=== PATIENT | female | born 1955 | race Caucasian/White ===

== ENCOUNTER 2018-03-02 17:13 | Inpatient (IN) | payer BC ==
[~2018-03-02] VITALS: Ht 165.1 cm; Wt 77.7 kg
[2018-03-02 17:13] VITALS: BP_SYST 127
--- NOTE | 2018-03-02 17:35 | NUR ---
Pt complains of abdominal pain, shortness or breath with exertion, and non-radiating chest wall pain. Pt states over the past few days it has gotten worse. Pt states she has felt "chills and does not feel good." Pt has been nauseous and vomited. Per pt, diarrhea is her baseline. Pt denies pain/burning upon urination. No other injuries/complaints per patient or noted.
--- NOTE | 2018-03-02 17:35 | NUR ---
Pt placed to ER bed 06, report given to ANITA Gomez.
[2018-03-02] MEDS ORDERED: ASPIRIN 81 MG TAB.CHEW PO ONE (18:00)
--- NOTE | 2018-03-02 18:00 | NUR ---
Medication was given, pt tolerated well. No adverse reaction, will continue to monitor.
[2018-03-02 18:10] LABS: BASOPHILS # (AUTO) 0.1 K/uL (0.0-0.2); BASOPHILS % (AUTO) 0.7 % (0.0-2.0); EOSINOPHILS # (AUTO) 0.2 K/uL (0.0-0.4); EOSINOPHILS % (AUTO) 2.1 % (0.0-4.0); HEMATOCRIT 46.3 % (36-48); HEMOGLOBIN 15.7 g/dL (12.0-16.0); LYMPHOCYTES # (AUTO) 2.8 K/uL (1.0-5.5); LYMPHOCYTES % (AUTO) 27.4 % (20.5-51.5); MEAN CORPUSCULAR HEMOGLOBIN 33 pg (27-31); MEAN CORPUSCULAR HGB CONC 34 % (32-36); MEAN CORPUSCULAR VOLUME 96 fL (79.0-98.0); MONOCYTES # (AUTO) 0.7 K/uL (0.0-1.0); MONOCYTES % (AUTO) 6.5 % (1.7-9.3); NEUTROPHILS # (AUTO) 6.5 K/uL (1.8-7.7); NEUTROPHILS % (AUTO) 63.3 % (40.0-70.0); PLATELET COUNT (AUTO) 272 K/uL (130-430); RED BLOOD CELL COUNT(AUTO) 4.82 MIL/uL (4.2-6.2); RED CELL DISTRIBUTION WIDTH 12.5 % (9.0-15.0); WHITE BLOOD COUNT (AUTO) 10.3 K/uL (4.8-10.8)
[2018-03-02 18:24] LABS: CALCIUM 9.2 mg/dL (8.4-11.0); CREATININE 1.06 mg/dL (0.55-1.30); POTASSIUM 3.8 mmol/L (3.5-5.1)
[2018-03-02 18:25] LABS: PROTHROMBIN TIME 10.5 SECS (9.5-12.5)
[2018-03-02 18:30] LABS: ALBUMIN 3.7 g/dL (3.4-4.8); TOTAL BILIRUBIN 0.4 mg/dL (0.0-1.0)
[2018-03-02] MEDS ORDERED: TRAZ300T2 PO (19:18)
[2018-03-02] MEDS ORDERED: CITA40TA22 PO (19:18)
[2018-03-02] MEDS ORDERED: OMEP20CA10 PO (19:18)
--- NOTE | 2018-03-02 19:19 | NUR ---
Gustavo mcbride in [facility] - 03/02/18 at 1919 by SDEDEJ Medication reconciliation completed with information provided by patient. Any prior medication reconciliation on file was reviewed and corrected.
--- NOTE | 2018-03-02 19:35 | NUR ---
belongings list done.
--- NOTE | 2018-03-02 19:52 | NUR ---
Patient will be admitted to care of Dr. Vail. Admitted to Telemetry unit. Will go to room 102 A. Belongings list completed. Summary report printed. Report will be given at bedside.
--- NOTE | 2018-03-02 19:53 | NUR ---
ADMISSION: The patient, KUMAR ELLIS, 62 y/o, F admitted by LINDA NAVA MD, was given written information regarding hospital policies, unit procedures and contact persons. Valuables were checked and pt informed her nurse will be Tracey.
[2018-03-02 20:05] VITALS: BP_SYST 113
[2018-03-02] MEDS ORDERED: KETOROLAC TROMETHAMINE 15 MG VIAL IVP PRN (20:30)
[2018-03-02] MEDS ORDERED: NITROGLYCERIN 0.4 MG TAB.SUBL SL PRN (20:30)
--- NOTE | 2018-03-02 20:30 | NUR ---
PHYSICAL ADMISSION NOTES: took over care from nurse Hinds, pt. awake, alert and oriented, updated on communication board, use of call light and bed control. pt. came in for c/o abdominal pain, shortness of breath, chest pain radiating to left arm, chills , n/v. VS checked earlier BP 113/58 HR 55 O2 sat @ 95% on 2l/nc. noted smoker's cough, been productive per pt. IV lock on left forearm, appears bruised around the site. call light within reach.
[2018-03-02] MEDS ORDERED: guaiFENesin/DEXTROMETHORPHAN 10 ML UDC PO PRN (20:45)
[2018-03-02] MEDS: traZODone HCL 50 MG TABLET (DESYREL) PO SCH (21:00)
[2018-03-02 21:55] VITALS: BP_SYST 113
--- NOTE | 2018-03-02 22:40 | NUR ---
NOTES: pt. called and c/o chest pain but been coughing hard, persistent and sounds congested. c/o headache, feeling hungry. Called RT for breathing treatment and was gonna give toradol IV, IV site bruised and when flushed, pt. hurting, tried to insert but infiltrated, will ask charge nurse to insert. pt. informed.
--- NOTE | 2018-03-02 22:46 | NUR ---
Cardio Consultation Paged Reason for consultation: Chest Pain Was consult called: Yes Person who was notified: Melissa Consulting Physician: Dr Patel; Dr Palumbo is on-call Warehouse Shipping Supervisor Specialty: Hand Paster Ordered By: Dr Vail
[2018-03-02] MEDS: LevALBUTEROL HCL 1.25 MG/0.5 ML *CONC.* VIAL.NEB (XOPENEX CONC.) INH SCH (23:01)
--- NOTE | 2018-03-02 23:30 | NUR ---
NOTES: pt. felt better after the breathing treatment, cough stop. IV Toradol given via new IV site on rt. forearm for c/o pain. HOB elevated, O2 @ 2l/nc. pt. needs attended.
[2018-03-03 00:26] VITALS: BP_SYST 103
--- NOTE | 2018-03-03 00:30 | NUR ---
NOTES; pt. resting, on sinus rhythm. continue to monitor.
--- NOTE | 2018-03-03 03:20 | NUR ---
NOTES: pt. sleeping when checked. continue to monitor.
--- NOTE | 2018-03-03 04:11 | NUR ---
NOTES: pt. HR 44, checked and sound asleep, asymptomatic. condition observed.
--- NOTE | 2018-03-03 06:15 | NUR ---
NOTES: HR still on low 40's and 50's. pt. awakened, doing ok, no chest pain and went back to sleep. condition guarded. for further observation. call light within reach.
[2018-03-03 06:44] LABS: ANION GAP 4 (5-15); CALCIUM 9.3 mg/dL (8.4-11.0); CHLORIDE 106 mmol/L (98-107); CREATININE 1.11 mg/dL (0.55-1.30); GLUCOSE 109 mg/dL (70-99); POTASSIUM 4.4 mmol/L (3.5-5.1); SODIUM SERUM 141 mmol/L (136-145); UREA NITROGEN, BLOOD 22 mg/dL (8-21)
[2018-03-03 06:48] LABS: BASOPHILS # (AUTO) 0.1 K/uL (0.0-0.2); BASOPHILS % (AUTO) 1.5 % (0.0-2.0); EOSINOPHILS # (AUTO) 0.3 K/uL (0.0-0.4); EOSINOPHILS % (AUTO) 3.7 % (0.0-4.0); HEMATOCRIT 45.6 % (36-48); HEMOGLOBIN 15.6 g/dL (12.0-16.0); LYMPHOCYTES # (AUTO) 3.1 K/uL (1.0-5.5); LYMPHOCYTES % (AUTO) 39.2 % (20.5-51.5); MEAN CORPUSCULAR HEMOGLOBIN 33 pg (27-31); MEAN CORPUSCULAR HGB CONC 34 % (32-36); MEAN CORPUSCULAR VOLUME 96 fL (79.0-98.0); MONOCYTES # (AUTO) 0.7 K/uL (0.0-1.0); MONOCYTES % (AUTO) 8.9 % (1.7-9.3); NEUTROPHILS # (AUTO) 3.6 K/uL (1.8-7.7); NEUTROPHILS % (AUTO) 46.7 % (40.0-70.0); PLATELET COUNT (AUTO) 248 K/uL (130-430); RED BLOOD CELL COUNT(AUTO) 4.75 MIL/uL (4.2-6.2); RED CELL DISTRIBUTION WIDTH 12.5 % (9.0-15.0); WHITE BLOOD COUNT (AUTO) 7.8 K/uL (4.8-10.8)
[2018-03-03 06:51] LABS: GFR AFRICAN AMERICAN 64 mL/min (>90)
--- NOTE | 2018-03-03 07:10 | NUR ---
endorsed pt. to incoming shift with nurse Thompson, pt. still sleeping on change of shift.
[2018-03-03] MEDS: LevALBUTEROL HCL 1.25 MG/0.5 ML *CONC.* VIAL.NEB (XOPENEX CONC.) INH SCH ×3 (07:17→23:00)
--- NOTE | 2018-03-03 07:55 | NUR ---
OPENING NOTE PATIENT REPORT RECEIVED FROM ACID TESTER NURSE, ANITA MARCUM. PATIENT RESTING COMFORTABLY. PATIENT GIVEN PAIN MEDICATION DURING ACID TESTER. PATIENT HAS NO NOTABLE SIGNS OF DISTRESS THIS TIME. PATIENT SINUS DUNCAN ON MONITOR. PATIENT HAS IV SALINE LOCKED PER MD ORDERS. PATIENT IS ALERT AND ORIENTED X 4 WITH BRP. PATIENT HAS LOVENOX FOR DVT PROPHYLAXIS. PATIENT ENCOURAGED TO CALL IF NEEDS ARISE. WILL CONTINUE TO MONITOR AND FOLLOW UP WITH PATIENT.
--- NOTE | 2018-03-03 07:57 | NUR ---
LAZARO WILLIS AT BEDSIDE FOR EVALUATION OF PATIENT.
[2018-03-03 08:13] LABS: CHOLESTEROL 209 mg/dL (<200); HDL CHOLESTEROL 61 mg/dL (>55); LDL CHOLESTEROL 132 mg/dL (<100); TRIGLYCERIDES 146 mg/dL (30-150)
[2018-03-03 08:20] VITALS: BP_SYST 158
[2018-03-03] MEDS: ASPIRIN 81 MG TAB.CHEW PO SCH (09:28)
[2018-03-03] MEDS: CITALOPRAM HYDROBROMIDE 20 MG TABLET PO SCH (09:28)
[2018-03-03] MEDS: OMEPRAZOLE 20 MG CAPSULE.DR (PriLOSEC) PO SCH (09:28)
[2018-03-03] MEDS: ENOXAPARIN SODIUM 40 MG/0.4 ML SYRINGE SUBCUT SCH (09:29)
--- NOTE | 2018-03-03 10:25 | NUR ---
NOTE PATIENT RESTING COMFORTABLY. NEEDS ARE MET AT THIS TIME. PAIN IS MANAGEABLE AT THIS TIME, AND PATIENT HAS NO NOTABLE SIGNS OF DISTRESS.
--- NOTE | 2018-03-03 11:35 | NUR ---
DISCHARGE PLANNING - PATIENT INTERVIEW Spoke with patient at the bedside and made it clear that she do not need any Home Health services. 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 She lives alone and likes living alone and has plenty of family support herself. She wanted DPOA form. Gave her a blank DPOA form and pt was very thankful.
[2018-03-03 12:00] VITALS: BP_SYST 140
--- NOTE | 2018-03-03 12:14 | NUR ---
NOTE PATIENT RESTING COMFORTABLY. NEEDS ARE MET AT THIS TIME. PAIN IS MANAGEABLE AT THIS TIME, AND PATIENT HAS NO NOTABLE SIGNS OF DISTRESS. FAN PROVIDED FOR COMFORT.
--- NOTE | 2018-03-03 14:30 | NUR ---
DISCHARGE PLANNING - TRANSFER TO A CONTRACTED FACILITY C/S with DUANE Lisandra @[facility] . She stated will need to be transferred to a contracted hospital : [facility] if stable for transfer. But if pt possibly can be discharge tomorrow and to follow up with a [facility] as outpatient pt can stay. She wants to be notified JOLIE. Attempted to contact Attending Physician, Dr. Vail for above. Left with contact phone number for DUANE. Addendum: 03/03/18 at 1443 by Sonia Syed RN Spoke with Dr. Vail's answering service. He will paged to DUANE. Addendum: 03/03/18 at 1454 by Sonia Syed RN DUANE Polanco has spoke with Dr. Vail who stated pt will most likely be discharge to home tomorrow and follow with a [facility]. Pt stated on prior interview, she has no Sh[facility] Was[facility] and was never seen by a [facility]. Attempted to contact Lisandra Park CM for [facility]. Left vm regarding above. Left message that pt has no [facility] Was[facility] / not seen a Sh[facility] Was[facility]. If she can provide a contracted a contracted [facility] for her. Left this CM's contact ph #. Addendum: 03/03/18 at 1607 by Sonia Syed RN Received call from Lisandra Park CM for [facility]. Informed her that Dr. Vail's plan is pt will be discharge tomorrow if status remains stable. DUANE is requesting from Dr. Vail if this admission can be categorized as an observation admission. Lisandra also stated that pt can ff-up with her PCP and PCP can refer her to [facility] around the area. Addendum: 03/03/18 at 1612 by Sonia Syed RN Spoke with Dr Vail regarding making this an admission as an Observation Admission. He do not agree to Lisandra ZEPEDA's request as this admission is a full inpt admission not an observation admission. Attempted to contact Lisandra ZEPEDA. Left vm informing her that Dr. Vail do not agree to Observation Admission.
--- NOTE | 2018-03-03 14:50 | NUR ---
NOTE PATIENT RESTING COMFORTABLE, NEEDS ARE MET AT THIS TIME, PATIENT STATES SHE IS FEELING TIRED. PATIENT ENCOURAGED TO REST.
--- NOTE | 2018-03-03 16:18 | NUR ---
NOTE PATIENT RESTING COMFORTABLY, NEEDS ARE MET AT THIS TIME, PATIENT ENCOURAGED TO CALL IF NEEDS ARISE. NO PAIN PRESENT AT THIS TIME, AND NO NOTABLE SIGNS OF DISTRESS AT THIS TIME. WILL CONTINUE TO FOLLOW UP AND MONITOR PATIENT FOR CHANGES IN STATUS.
[2018-03-03 16:21] VITALS: BP_SYST 144
--- NOTE | 2018-03-03 19:10 | NUR ---
CLOSING NOTE PATIENT RESTING COMFORTABLY. NEEDS ARE MET AT THIS TIME. REPORT ENDORSED TO PM SHIFT NURSE ANITA MARCUM.
--- NOTE | 2018-03-03 19:10 | NUR ---
CHANGE OF SHIFT: pt. awake, alert, watching tv. in no acute distress, denies any chest pain. instructed to call nurse and use of call light when help needed and verbalized understanding.
[2018-03-03 20:00] VITALS: BP_SYST 145
--- NOTE | 2018-03-03 20:00 | NUR ---
NOTES: pt. been ambulating inside the room. still with occasional cough. cardiac pattern on sinus bradycardia. IV lock on rt. arm. denies any pain at this time, been playing games with her phone.
[2018-03-03] MEDS: traZODone HCL 50 MG TABLET (DESYREL) PO SCH (21:11)
--- NOTE | 2018-03-03 22:00 | NUR ---
NOTES: due meds given, only taken 3 pills instead of 6. feels good with big fan inside.
--- NOTE | 2018-03-04 02:00 | NUR ---
NOTES: checked pt. sleeping. condition unchanged.
--- NOTE | 2018-03-04 04:00 | NUR ---
NOTES: pneumatic hoist operator shows sinus esa, pt. symptomatic. sleeping quietly.
[2018-03-04 06:26] VITALS: BP_SYST 141
--- NOTE | 2018-03-04 06:27 | NUR ---
CLOSING NOTES; pt. awakened and ambulated to the restroom, was able to sleep without sweating. VS checked BP 141/67 HR 66 O2 sat 96% on room air. for further observation.
--- NOTE | 2018-03-04 07:10 | NUR ---
endorsed pt. to incoming shift with nurse Ayers for continuity of care.
[2018-03-04] MEDS: LevALBUTEROL HCL 1.25 MG/0.5 ML *CONC.* VIAL.NEB (XOPENEX CONC.) INH SCH ×2 (07:23→15:09)
[2018-03-04 08:02] VITALS: BP_SYST 140
--- NOTE | 2018-03-04 08:05 | NUR ---
Opening note Pt and report received from [facility] shift nurse, pt sitting in bed watching TV, no s/s of SOB or distress, no c/o pain or discomfort at this time. Pt A&O x4, hoping to go home today. Bed and safety check completed, bed in low locked position with call light within reach. Pt refused bed alarm.
[2018-03-04] MEDS: ENOXAPARIN SODIUM 40 MG/0.4 ML SYRINGE SUBCUT SCH (08:31)
[2018-03-04] MEDS: CITALOPRAM HYDROBROMIDE 20 MG TABLET PO SCH (08:32)
[2018-03-04] MEDS: OMEPRAZOLE 20 MG CAPSULE.DR (PriLOSEC) PO SCH (08:32)
[2018-03-04] MEDS: ASPIRIN 81 MG TAB.CHEW PO SCH (08:32)
[2018-03-04] MEDS ORDERED: AMIODARONE HCL 200 MG TABLET PO SCH (09:00)
--- NOTE | 2018-03-04 09:50 | NUR ---
Rounding note Pt sitting in bed watching TV, no s/s of SOB or distress, no c/o pain or discomfort at this time. Bed alarm refused, pt ambulatory.
--- NOTE | 2018-03-04 12:07 | NUR ---
Rounding Pt resting in bed with eyes closed, breathing even and unlabored. Left undisturbed with bed in low position and call light within reach.
[2018-03-04 13:11] VITALS: BP_SYST 143
--- NOTE | 2018-03-04 14:05 | NUR ---
Rounding Pt resting in bed, no s/s of SOB or distress, no c/o pain or discomfort. Pt indicates she would like to go home when physician arrives. Charge has talked with physician earlier, physician aware.
[2018-03-04 16:20] VITALS: BP_SYST 133
--- NOTE | 2018-03-04 16:23 | NUR ---
Rounding Pt resting in bed, watching TV and looking at phone, no s/s of SOB or distress, no c/o pain or discomfort. Bed in low locked position, call light within reach, bed alarm refused.
--- NOTE | 2018-03-04 18:23 | NUR ---
Lillie Pt ambulated to room 121C to see her mother (a patient) who is being transferred to [facility]. Pt able to ambulate independent, no s/s of SOB or distress, no c/o pain or discomfort.
--- NOTE | 2018-03-04 19:27 | NUR ---
Closing/Discharge note pt discharge ordered after pt talked to Dr Vail and agreed to follow up with PCP for evaluation of 1.6x1.2 right upper lobe nodule in lung. Pt chose to go and follow up as outpatient instead of completing biopsy as in patient at this time. Physician reports pt to be given xray report and disc with CXR and CT scan. Discharge paperwork complete will endorse discharge to NOC shift.
--- NOTE | 2018-03-04 19:40 | NUR ---
ROUNDS PATIENT SITTING UP IN BED, NOT IN DISTRESS, VITALS STABLE. DENIES ANY PAIN AND DISCOMFORT AT THIS TIME. PATIENT READY FOR DISCHARGE HOME ORDERED AND IS WAITING FOR FAMILY TO PICK HER UP. TRANSITION OF CARE INSTRUCTIONS GIVEN AND PATIENT VERBALIZED UNDERSTANDING. IV ON HER LEFT FOREARM G. 20 D/CD WITH GAUZE APPLIED. NEEDS ATTENDED TO.
--- NOTE | 2018-03-04 19:59 | NUR ---
CLOSING NOTES PATIENT DISCHARGED HOME ORDERED VIA WHEELCHAIR TO THEIR PRIVATE CAR OUTSIDE WITH STABLE VITAL SIGNS. TRANSITION OF CARE INSTRUCTIONS DONE. ALL NEEDS MET.
== END 2018-03-04 19:59 | disposition home or self-care (01) | DRG 206 ==
LOC: SED 17:13 → STU 19:35
PROVIDERS: ADMIT Family Medicine; ATTEND Family Medicine
DX: M94.0 Chondrocostal junction syndrome [Tietze] (principal); F41.9 Anxiety disorder, unspecified; F12.90 Cannabis use, unspecified, uncomplicated; I35.0 Nonrheumatic aortic (valve) stenosis; J40 Bronchitis, not specified as acute or chronic; N28.1 Cyst of kidney, acquired; F32.9 Major depressive disorder, single episode, unspecified; G47.00 Insomnia, unspecified; F17.210 Nicotine dependence, cigarettes, uncomplicated; R91.1 Solitary pulmonary nodule; Z90.49 Acquired absence of other specified parts of digestive tract; Z79.899 Other long term (current) drug therapy
CPT/HCPCS: 36415; 71045; 71250-TC; 80048; 80053; 80061; 82550-TC; 84484; 85025; 85610-TC; 93005; 93306; 94640; 99285; J1650; J1885; J7612